=== PATIENT | male | born 1950 | race Caucasian/White ===

== ENCOUNTER 2021-03-16 16:55 | Inpatient (IN) ==
[2021-03-16] MEDS ORDERED: methylPREDNISolone 125 MG/2 ML VIAL IVP ONE ×2 (17:09→18:53)
[2021-03-16] MEDS ORDERED: Ipratropium/Albuterol Neb 3 ML IH ONE (17:09)
[2021-03-16] MEDS ORDERED: Levalbuterol Neb 1.25 MG/3 ML IH ONE (17:10)
[2021-03-16 17:32] LABS: Basophils # 0.1 K/mcL (0.0-0.2); Basophils % 0.5 %; Eosinophils # 0.1 K/mcL (0.0-0.6); Eosinophils % 0.9 %; Hematocrit 46.6 % (37.5-50.1); Hemoglobin 15.4 g/dL (12.9-16.9); Immature Granulocytes % 0.8 % (0-4); Lymphocytes # 0.9 K/mcL (0.6-4.6); Lymphocytes % 7.9 %; Mean Corpuscular Hemoglobin 29.4 pg (28.0-33.3); Mean Corpuscular Volume 89.1 fL (83.0-100.0); Mean Platelet Volume 10.5 fL (9.4-12.4); Monocytes # 1.3 K/mcL (0.0-1.3); Monocytes % 11.3 %; Neutrophils # 9.3 K/mcL (1.6-8.9); Platelet Count 279 K/mcL (140-400); Red Blood Count 5.23 M/mcL (4.19-5.50); Red Cell Distribution Width 16.4 % (11.5-14.5); Segmented Neutrophils % 78.6 %; White Blood Count 11.8 K/mcL (4.3-11.1)
[2021-03-16] MEDS ORDERED: Ondansetron 4 MG/2 ML VIAL IVP ONE (17:38)
[2021-03-16 17:40] LABS: INR 1.2; Prothrombin Time 13.2 Seconds (9.4-12.1)
[2021-03-16 17:43] LABS: Activated Partial Thrombo Time 32.5 Seconds (26.0-36.0)
[2021-03-16 17:45] LABS: ABG Base Excess -1 mEq/L (-2 to 3); ABG HCO3 24 mEq/L (21-27); ABG Oxygen Saturation 97 % (95-98); ABG PCO2 40 mmHg (35-45); ABG PH 7.38 pH Units (7.32-7.45); ABG PO2 88 mmHg (85-104); ABG TCO2 25 mEq/L (20-26)
[2021-03-16 17:51] LABS: Troponin I < 0.03 ng/mL (< 0.04)
[2021-03-16 17:52] LABS: Alanine Aminotransferase 11 Units/L (7-52); Albumin 4.2 g/dL (3.5-5.7); Albumin/Globulin Ratio 1.4 (1.1-2.2); Alkaline Phosphatase 122 Units/L (34-104); Aspartate Amino Transferase 19 Units/L (13-39); BUN/Creatinine Ratio 16 (6-26); Bilirubin,Direct 0.1 mg/dL (0.0-0.2); Bilirubin,Indirect 0.3 mg/dL (0.0-1.0); Bilirubin,Total 0.4 mg/dL (0.3-1.0); Blood Urea Nitrogen 16 mg/dL (8-23); Calcium 9.1 mg/dL (8.6-10.3); Carbon Dioxide 26 mEq/L (23-29); Chloride 100 mEq/L (98-107); Globulin 3.1 g/dL (2.4-3.5); Glucose 84 mg/dL (70-105); Osmolality,Calculated 280 (280-300); Potassium 4.1 mEq/L (3.5-5.1); Sodium 135 mEq/L (136-145); Total Protein 7.3 g/dL (6.4-8.9); eGFR For African Americans > 60 (> 60); eGFR For Non-African Americans > 60 (> 60)
[2021-03-16] MEDS ORDERED: Ipratropium/Albuterol Neb 3 ML IH PRN (18:53)
[2021-03-16] MEDS ORDERED: Naloxone 0.4 MG/ML INJ IVP PRN (18:53)
[2021-03-16] MEDS ORDERED: Albuterol 2.5 MG/3 ML NEBULIZER IH PRN (18:53)
[2021-03-16] MEDS: levoFLOXacin 500 MG/100 ML 500 MG/100 ML BAG IVPB SCH (20:57)
[2021-03-16] MEDS: Ipratropium/Albuterol Neb 3 ML IH SCH (22:13)
[2021-03-17] MEDS: Ipratropium/Albuterol Neb 3 ML IH SCH ×5 (03:27→23:51)
[2021-03-17] MEDS ORDERED: *HR* LORazepam 2 MG/ML VIAL IVP ONE (03:48)
[2021-03-17] MEDS ORDERED: hydrOXYzine pamoate 25 MG CAPSULE PO PRN (03:49)
[2021-03-17] MEDS: MethylPREDNISolone 40 MG/ML VIAL IVP SCH ×3 (05:52→21:35)
[2021-03-17] MEDS: DilTIAZem CD (24hr) 240 MG CAP.ER.24H PO SCH (08:42)
[2021-03-17] MEDS: Budesonide/Formoterol 160/4.5 1 PUFF INH IH SCH ×2 (16:17→19:56)
[2021-03-17] MEDS ORDERED: Acetaminophen 325 MG TABLET PO PRN (18:26)
[2021-03-17] MEDS: levoFLOXacin 500 MG/100 ML 500 MG/100 ML BAG IVPB SCH (21:33)
[2021-03-18] MEDS: Ipratropium/Albuterol Neb 3 ML IH SCH ×4 (04:02→16:45)
[2021-03-18 04:30] LABS: Hematocrit 47.7 % (37.5-50.1); Hemoglobin 15.1 g/dL (12.9-16.9); Mean Corpuscular HGB Conc 31.7 g/dL (31.6-35.5); Mean Corpuscular Hemoglobin 29.5 pg (28.0-33.3); Mean Corpuscular Volume 93.2 fL (83.0-100.0); Mean Platelet Volume 11.1 fL (9.4-12.4); Platelet Count 219 K/mcL (140-400); Red Blood Count 5.12 M/mcL (4.19-5.50); Red Cell Distribution Width 16.6 % (11.5-14.5); White Blood Count 16.8 K/mcL (4.3-11.1)
[2021-03-18 04:46] LABS: BUN/Creatinine Ratio 30 (6-26); Blood Urea Nitrogen 30 mg/dL (8-23); Calcium 9.3 mg/dL (8.6-10.3); Carbon Dioxide 26 mEq/L (23-29); Chloride 101 mEq/L (98-107); Glucose 129 mg/dL (70-105); Osmolality,Calculated 286 (280-300); Potassium 4.6 mEq/L (3.5-5.1); Sodium 134 mEq/L (136-145); eGFR For African Americans > 60 (> 60); eGFR For Non-African Americans > 60 (> 60)
[2021-03-18] MEDS ORDERED: *HR* Enoxaparin 40 MG/0.4 ML SYRINGE SQ SCH (06:00)
[2021-03-18] MEDS: MethylPREDNISolone 40 MG/ML VIAL IVP SCH (06:32)
[2021-03-18] MEDS: DilTIAZem CD (24hr) 240 MG CAP.ER.24H PO SCH (07:50)
[2021-03-18] MEDS: Budesonide/Formoterol 160/4.5 1 PUFF INH IH SCH (11:43)
[2021-03-18 13:21] LABS: Adenovirus Not Detected (Not Detect); Coronavirus 229E Not Detected (Not Detect); Coronavirus HKU1 Not Detected (Not Detect); Coronavirus NL63 Not Detected (Not Detect)
[2021-03-18 13:22] LABS: Bordetella Pertussis Not Detected (Not Detect); Chlamydophila pneumoniae Not Detected (Not Detect); Coronavirus OC43 Not Detected (Not Detect); Human Metapneumovirus Not Detected (Not Detect); Human Rhinovirus/Enterovirus Not Detected (Not Detect); Influenza A Subtype 2009 H1 Not Detected (Not Detect); Influenza B Not Detected (Not Detect); Mycoplasma pneumoniae Not Detected (Not Detect); Parainfluenza Virus 1 Not Detected (Not Detect); Parainfluenza Virus 2 Not Detected (Not Detect); Parainfluenza Virus 3 Not Detected (Not Detect); Parainfluenza Virus 4 Not Detected (Not Detect); Respiratory Syncytial Virus DETECTED (Not Detect); SARS-CoV-2 Not Detected (Not Detect)
[2021-03-18 16:11] VITALS: BP 150/82; PULSE 79; RESP 18; TEMP 98.6
[2021-03-18 16:49] VITALS: O2SAT 96
== END 2021-03-18 17:02 | disposition home health service (06) | DRG 190 ==
LOC: INPGRE 16:55 → EMEROOGRE 16:55 → INPGRE 19:16
PROVIDERS: ADMIT Family Medicine; ATTEND Family Medicine

== ENCOUNTER 2021-05-07 03:25 | Observation (INO) ==
[2021-05-07] MEDS ORDERED: methylPREDNISolone 125 MG/2 ML VIAL IVP ONE (03:40)
[2021-05-07] MEDS ORDERED: Ipratropium/Albuterol Neb 3 ML IH ONE ×3 (03:40→08:11)
[2021-05-07] MEDS ORDERED: 0.9 % Sodium Chloride 1,000 ML IVC ONE (03:40)
[2021-05-07] MEDS ORDERED: Levalbuterol Neb 1.25 MG/3 ML IH ONE (03:41)
[2021-05-07 04:22] LABS: Basophils % 0.2 %; Eosinophils % 0.1 %; Hematocrit 46.1 % (37.5-50.1); Hemoglobin 15.6 g/dL (12.9-16.9); Lymphocytes # 1.5 K/mcL (0.6-4.6); Lymphocytes % 13.2 %; Mean Corpuscular HGB Conc 33.8 g/dL (31.6-35.5); Mean Corpuscular Hemoglobin 30.1 pg (28.0-33.3); Mean Platelet Volume 10.6 fL (9.4-12.4); Monocytes % 9.4 %; Platelet Count 317 K/mcL (140-400); Red Blood Count 5.18 M/mcL (4.19-5.50); Red Cell Distribution Width 16.6 % (11.5-14.5); Segmented Neutrophils % 76.1 %; White Blood Count 11.1 K/mcL (4.3-11.1)
[2021-05-07 04:23] LABS: Neutrophils # 8.5 K/mcL (1.6-8.9)
[2021-05-07 04:25] LABS: INR 1.1; Prothrombin Time 12.6 Seconds (9.4-12.1)
[2021-05-07] MEDS ORDERED: *HR* LORazepam 2 MG/ML VIAL IVP ONE ×2 (04:27→05:15)
[2021-05-07 04:31] LABS: ABG Base Excess 0 mEq/L (-2 to 3); ABG HCO3 26 mEq/L (21-27); ABG Oxygen Saturation 96 % (95-98); ABG PCO2 46 mmHg (35-45); ABG PH 7.37 pH Units (7.32-7.45); ABG PO2 83 mmHg (85-104); ABG TCO2 28 mEq/L (20-26)
[2021-05-07 04:36] LABS: Troponin I < 0.03 ng/mL (< 0.04)
[2021-05-07 04:37] LABS: Alanine Aminotransferase 145 Units/L (7-52); Albumin 3.7 g/dL (3.5-5.7); Albumin/Globulin Ratio 1.4 (1.1-2.2); Alkaline Phosphatase 98 Units/L (34-104); Aspartate Amino Transferase 119 Units/L (13-39); BUN/Creatinine Ratio 31 (6-26); Bilirubin,Direct 0.2 mg/dL (0.0-0.2); Bilirubin,Indirect 0.2 mg/dL (0.0-1.0); Bilirubin,Total 0.4 mg/dL (0.3-1.0); Blood Urea Nitrogen 28 mg/dL (8-23); Calcium 8.7 mg/dL (8.6-10.3); Carbon Dioxide 28 mEq/L (23-29); Chloride 105 mEq/L (98-107); Globulin 2.7 g/dL (2.4-3.5); Glucose 102 mg/dL (70-105); Osmolality,Calculated 296 (280-300); Potassium 3.8 mEq/L (3.5-5.1); Sodium 140 mEq/L (136-145); Total Protein 6.4 g/dL (6.4-8.9); eGFR For African Americans > 60 (> 60); eGFR For Non-African Americans > 60 (> 60)
[2021-05-07] MEDS ORDERED: Ipratropium/Albuterol Neb 3 ML IH PRN ×2 (08:34→09:00)
[2021-05-07 08:35] LABS: ABG Base Excess -3 mEq/L (-2 to 3); ABG HCO3 25 mEq/L (21-27); ABG Oxygen Saturation 84 % (95-98); ABG PCO2 54 mmHg (35-45); ABG PH 7.28 pH Units (7.32-7.45); ABG PO2 56 mmHg (85-104); ABG TCO2 27 mEq/L (20-26)
[2021-05-07] MEDS ORDERED: Albuterol 2.5 MG/3 ML NEBULIZER IH PRN (08:37)
[2021-05-07 10:20] LABS: ABG Base Excess -1 mEq/L (-2 to 3); ABG HCO3 26 mEq/L (21-27); ABG Oxygen Saturation 92 % (95-98); ABG PCO2 49 mmHg (35-45); ABG PH 7.33 pH Units (7.32-7.45); ABG PO2 69 mmHg (85-104); ABG TCO2 27 mEq/L (20-26)
[2021-05-07 10:22] LABS: Activated Partial Thrombo Time 27.6 Seconds (26.0-36.0)
[2021-05-07 10:29] LABS: Magnesium 2.2 mg/dL (1.6-2.6)
[2021-05-07] MEDS: MethylPREDNISolone 40 MG/ML VIAL IVP SCH ×4 (10:35→23:30)
[2021-05-07 12:25] LABS: Adenovirus Not Detected (Not Detect); Bordetella Pertussis Not Detected (Not Detect); Chlamydophila pneumoniae Not Detected (Not Detect); Coronavirus 229E Not Detected (Not Detect); Coronavirus HKU1 Not Detected (Not Detect); Coronavirus NL63 Not Detected (Not Detect); Coronavirus OC43 Not Detected (Not Detect); Human Metapneumovirus Not Detected (Not Detect); Human Rhinovirus/Enterovirus Not Detected (Not Detect); Influenza A Subtype 2009 H1 Not Detected (Not Detect); Influenza B Not Detected (Not Detect); Mycoplasma pneumoniae Not Detected (Not Detect); Parainfluenza Virus 1 Not Detected (Not Detect); Parainfluenza Virus 2 Not Detected (Not Detect); Parainfluenza Virus 3 DETECTED (Not Detect); Parainfluenza Virus 4 Not Detected (Not Detect); Respiratory Syncytial Virus Not Detected (Not Detect); SARS-CoV-2 Not Detected (Not Detect)
[2021-05-07] MEDS ORDERED: Melatonin 3 MG TABLET PO PRN (14:57)
[2021-05-07] MEDS ORDERED: Naloxone 0.4 MG/ML INJ IVP PRN (14:57)
[2021-05-07] MEDS ORDERED: Mag Hydrox/Al Hydrox/Simeth 30 ML UDC PO PRN (14:57)
[2021-05-07] MEDS ORDERED: Acetaminophen 325 MG TABLET PO PRN (14:57)
[2021-05-07] MEDS ORDERED: *HR* HYDROcodone/Acet 5/325 mg TABLET PO PRN (14:57)
[2021-05-07] MEDS ORDERED: Ondansetron ODT 4 MG TAB.RAPDIS SL PRN (14:57)
[2021-05-07] MEDS ORDERED: Ondansetron 4 MG/2 ML VIAL IVP PRN (14:57)
[2021-05-07] MEDS ORDERED: MOM Conc 10 ML UD.LIQ PO PRN (14:57)
[2021-05-07] MEDS ORDERED: MethylPREDNISolone 40 MG/ML VIAL IVP SCH (15:08)
[2021-05-07] MEDS: Ipratropium/Albuterol Neb 3 ML IH SCH ×2 (15:23→20:05)
[2021-05-07] MEDS ORDERED: Ipratropium/Albuterol Neb 3 ML IH SCH (17:00)
[2021-05-08 01:02] LABS: Bilirubin,Urine Negative (Negative); Blood,Urine Trace-intact (Negative); Clarity,Urine Clear (Clear); Color,Urine Yellow (Yellow); Glucose,Urine (UA) Normal (Normal); Ketones,Urine Negative (Negative); Leukocyte Esterase,Urine Negative (Negative); Nitrite,Urine Negative (Negative); Protein,Urine Trace mg/dL (Neg-Trace); Specific Gravity,Urine >= 1.030 (1.010-1.025); Urobilinogen,Urine Normal (Normal)
[2021-05-08 01:11] LABS: Bacteria,Urine Many per hpf (None-Few); RBC,Urine 0-3 per hpf (0-3); Squamous Epithelial Cell,Urine Few per hpf (None-Few)
[2021-05-08] MEDS: Ipratropium/Albuterol Neb 3 ML IH SCH ×5 (03:31→23:39)
[2021-05-08] MEDS: MethylPREDNISolone 40 MG/ML VIAL IVP SCH ×3 (05:04→17:36)
[2021-05-08] MEDS: *HR* Enoxaparin 40 MG/0.4 ML SYRINGE SQ SCH (05:05)
[2021-05-08 07:01] LABS: Alanine Aminotransferase 166 Units/L (7-52); Albumin 3.5 g/dL (3.5-5.7); Albumin/Globulin Ratio 1.3 (1.1-2.2); Alkaline Phosphatase 86 Units/L (34-104); Aspartate Amino Transferase 88 Units/L (13-39); BUN/Creatinine Ratio 41 (6-26); Bilirubin,Total 0.5 mg/dL (0.3-1.0); Blood Urea Nitrogen 32 mg/dL (8-23); Carbon Dioxide 29 mEq/L (23-29); Chloride 107 mEq/L (98-107); Globulin 2.6 g/dL (2.4-3.5); Glucose 115 mg/dL (70-105); Magnesium 2.5 mg/dL (1.6-2.6); Osmolality,Calculated 302 (280-300); Phosphorous 3.2 mg/dL (2.7-4.5); Sodium 142 mEq/L (136-145); Total Protein 6.1 g/dL (6.4-8.9); eGFR For African Americans > 60 (> 60); eGFR For Non-African Americans > 60 (> 60)
[2021-05-08 07:03] LABS: Basophils % 0.2 %; Hematocrit 46.7 % (37.5-50.1); Hemoglobin 15.2 g/dL (12.9-16.9); Immature Granulocytes % 0.9 % (0-4); Lymphocytes # 0.9 K/mcL (0.6-4.6); Lymphocytes % 6.8 %; Mean Corpuscular HGB Conc 32.5 g/dL (31.6-35.5); Mean Corpuscular Hemoglobin 29.3 pg (28.0-33.3); Mean Platelet Volume 11.1 fL (9.4-12.4); Monocytes # 0.4 K/mcL (0.0-1.3); Monocytes % 3.2 %; Neutrophils # 11.6 K/mcL (1.6-8.9); Platelet Count 288 K/mcL (140-400); Red Blood Count 5.19 M/mcL (4.19-5.50); Segmented Neutrophils % 88.9 %
[2021-05-08 07:03] LABS: VBG HCO3 25 mEq/L (21-27); VBG PCO2 38 mmHg (41-51); VBG PH 7.42 pH Units (7.32-7.42); VBG PO2 61 mmHg (25-50)
[2021-05-08 07:08] LABS: Calcium 8.6 mg/dL (8.6-10.3)
[2021-05-08] MEDS ORDERED: *HR* LORazepam 2 MG/ML VIAL IVP PRN ×2 (08:35→15:07)
[2021-05-08] MEDS: Budesonide/Formoterol 160/4.5 1 PUFF INH IH SCH ×2 (09:28→20:15)
[2021-05-08] MEDS: Tiotropium 10 INH DOSE IH SCH (09:28)
[2021-05-08] MEDS: DilTIAZem CD (24hr) 180 MG CAP.ER.24H PO SCH (10:09)
[2021-05-08] MEDS: Furosemide 20 MG TABLET PO SCH (10:09)
[2021-05-08] MEDS ORDERED: Ipratropium/Albuterol Neb 3 ML IH ONE (14:42)
[2021-05-09] MEDS: MethylPREDNISolone 40 MG/ML VIAL IVP SCH ×4 (00:30→16:06)
[2021-05-09] MEDS: Ipratropium/Albuterol Neb 3 ML IH SCH ×5 (04:03→15:42)
[2021-05-09] MEDS: *HR* Enoxaparin 40 MG/0.4 ML SYRINGE SQ SCH (06:00)
[2021-05-09] MEDS: Furosemide 20 MG TABLET PO SCH (07:39)
[2021-05-09] MEDS: DilTIAZem CD (24hr) 180 MG CAP.ER.24H PO SCH (07:39)
[2021-05-09] MEDS: Tiotropium 10 INH DOSE IH SCH (08:51)
[2021-05-09] MEDS: Budesonide/Formoterol 160/4.5 1 PUFF INH IH SCH (08:52)
[2021-05-09 16:28] VITALS: BP 170/76; PULSE 86; RESP 18; TEMP 98.6; O2SAT 96
== END 2021-05-09 17:37 | disposition home or self-care (01) ==
LOC: EMEROOGRE 03:25 → INPGRE 03:25
PROVIDERS: ADMIT Family Medicine; ATTEND Family Medicine